=== PATIENT | male | born 1995 | race Hispanic/Latino ===

== ENCOUNTER → 2023-04-05 | Outpatient (CLI) | payer BC ==
[2023-04-05 22:22] VITALS: PULSE 82; RESP 14
[2023-04-05 23:00] VITALS: PULSE 80; RESP 10
[2023-04-05 23:30] VITALS: PULSE 84; RESP 10
[2023-04-06] VITALS (11 sets, daily range): PULSE 52–88; RESP 6–16
== END | disposition home or self-care (01) ==
LOC: SLP 20:38
PROVIDERS: ATTEND Family Medicine
DX: G47.33 Obstructive sleep apnea (adult) (pediatric) (principal); R06.83 Snoring
CPT/HCPCS: 95810